=== PATIENT | female | born 1950 | race Caucasian/White ===

== ENCOUNTER 2023-04-14 14:51 | Outpatient (CLI) | payer MEDICARE, SELFPAY | END 2023-04-14 14:52 | disposition home or self-care (01) | LOC: WOUND 14:51 | PROVIDERS: PCP Family Medicine; Visit Provider Nurse Practitioner Family | DX: L97.512 Non-pressure chronic ulcer of other part of right foot with fat layer exposed (principal) | CPT/HCPCS: 11042 ==

== ENCOUNTER 2023-04-21 14:53 | Outpatient (CLI) | payer MEDICARE, SELFPAY | END 2023-04-21 14:54 | disposition home or self-care (01) | LOC: WOUND 14:53 | PROVIDERS: PCP Family Medicine; Visit Provider Nurse Practitioner Family | DX: I89.0 Lymphedema, not elsewhere classified (principal); L97.512 Non-pressure chronic ulcer of other part of right foot with fat layer exposed | CPT/HCPCS: 97597 ==

== ENCOUNTER 2023-04-28 14:52 | Outpatient (CLI) | payer MEDICARE, SELFPAY | END 2023-04-28 14:53 | disposition home or self-care (01) | LOC: WOUND 14:52 | PROVIDERS: PCP Family Medicine; Visit Provider Family Medicine | DX: I89.0 Lymphedema, not elsewhere classified (principal); L97.512 Non-pressure chronic ulcer of other part of right foot with fat layer exposed; R73.03 Prediabetes; M14.679 Charcot's joint, unspecified ankle and foot | CPT/HCPCS: 11042; 97597 ==

== ENCOUNTER 2023-05-19 14:45 | Outpatient (CLI) | payer MEDICARE, SELFPAY | END 2023-05-19 14:46 | disposition home or self-care (01) | LOC: WOUND 14:45 | PROVIDERS: PCP Family Medicine; Visit Provider Nurse Practitioner Family | DX: I89.0 Lymphedema, not elsewhere classified (principal); L97.512 Non-pressure chronic ulcer of other part of right foot with fat layer exposed | CPT/HCPCS: 97597 ==

== ENCOUNTER 2023-06-16 15:01 | Outpatient (CLI) | payer MEDICARE, SELFPAY | END 2023-06-16 15:02 | disposition home or self-care (01) | LOC: WOUND 15:01 | PROVIDERS: PCP Family Medicine; Visit Provider Nurse Practitioner Family | DX: I89.0 Lymphedema, not elsewhere classified (principal); L97.512 Non-pressure chronic ulcer of other part of right foot with fat layer exposed; M14.679 Charcot's joint, unspecified ankle and foot; R73.03 Prediabetes | CPT/HCPCS: 99212 ==

== ENCOUNTER 2023-10-20 08:28 | Outpatient (CLI) | payer MEDICARE, SELFPAY | END 2023-10-20 08:29 | disposition home or self-care (01) | LOC: WOUND 08:29 | PROVIDERS: PCP Family Medicine; Visit Provider Nurse Practitioner Family | DX: L89.311 Pressure ulcer of right buttock, stage 1 (principal); L89.891 Pressure ulcer of other site, stage 1; R73.03 Prediabetes; I89.0 Lymphedema, not elsewhere classified | CPT/HCPCS: 97602; 99213 ==

== ENCOUNTER 2023-10-27 14:21 | Outpatient (CLI) | payer MEDICARE, SELFPAY | END 2023-10-27 14:22 | disposition home or self-care (01) | LOC: WOUND 14:21 | PROVIDERS: PCP Family Medicine; Visit Provider Nurse Practitioner Family | DX: L89.311 Pressure ulcer of right buttock, stage 1 (principal); M14.679 Charcot's joint, unspecified ankle and foot; L97.528 Non-pressure chronic ulcer of other part of left foot with other specified severity; R73.03 Prediabetes; I89.0 Lymphedema, not elsewhere classified | CPT/HCPCS: 36415; 83036; 97602; 99213 ==

== ENCOUNTER 2023-11-12 08:22 | Outpatient (CLI) | payer MEDICARE, SELFPAY | END 2023-11-12 08:23 | disposition home or self-care (01) | LOC: WOUND 08:22 | PROVIDERS: PCP Family Medicine; Visit Provider Family Medicine | DX: L89.311 Pressure ulcer of right buttock, stage 1 (principal); L89.891 Pressure ulcer of other site, stage 1; R73.03 Prediabetes; I89.0 Lymphedema, not elsewhere classified | CPT/HCPCS: G0463 ==

== ENCOUNTER 2024-06-08 08:22 | Outpatient (RCR) | payer MEDICARE, SELFPAY ==
[2023-11-16 11:20] VITALS: BMI 59.5
[2023-11-16 13:41] VITALS: BMI 59.5
[2023-11-18 08:14] VITALS: BMI 59.5
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
[2023-11-27 09:23] VITALS: BMI 59.5
[2023-11-30 18:49] VITALS: BMI 59.5
[2023-12-04 16:33] VITALS: BMI 59.5
[2023-12-23 09:52] VITALS: BMI 59.5
[2023-12-28 14:07] VITALS: BMI 59.5
[2023-12-30 10:25] VITALS: BMI 59.5
[2024-01-04 14:56] VITALS: BMI 59.5
[2024-01-08 16:37] VITALS: BMI 59.5
[2024-01-13 09:49] VITALS: BMI 59.5
[2024-01-22 16:56] VITALS: BMI 59.5
[2024-01-25 12:15] VITALS: BMI 59.5
[2024-01-29 16:09] VITALS: BMI 59.5
[2024-02-05 16:54] VITALS: BMI 59.5
[2024-02-12 17:03] VITALS: BMI 59.5
[2024-03-16 10:00] VITALS: BMI 59.5
[2024-03-16 13:31] VITALS: BMI 59.5
[2024-03-29 13:41] VITALS: BMI 59.5
[2024-04-06 11:49] VITALS: BMI 59.5
== END 2024-10-06 23:59 | disposition home or self-care (01) ==
PROVIDERS: PCP Family Medicine; Visit Provider Nurse Practitioner Family
DX: I89.0 Lymphedema, not elsewhere classified (principal); Z51.89 Encounter for other specified aftercare
CPT/HCPCS: 97140; 97167; 97535